=== PATIENT | female | born 1965 ===

== ENCOUNTER 2022-09-12 08:40 | Day surgery (SDC) | payer OTHER ==
[~2022-09-12 08:40] MED LIST: BIOTIN5000 MCG PO; CENTRUM ADULT120 MCG PO; TAMOXIFEN CITRA20 MG PO
== END 2022-09-12 19:15 | disposition home or self-care (01) ==
LOC: CIR.AMB 08:40
PROVIDERS: ATTEND Obstetrics & Gynecology
DX: N84.0 Polyp of corpus uteri (principal); R10.2 Pelvic and perineal pain; Z20.822 Contact with and (suspected) exposure to COVID-19; N94.89 Other specified conditions associated with female genital organs and menstrual cycle; C50.919 Malignant neoplasm of unspecified site of unspecified female breast; Z79.810 Long term (current) use of selective estrogen receptor modulators (SERMs)

== ENCOUNTER 2023-06-19 12:00 | Day surgery (SDC) | payer OTHER ==
[2023-06-19] MEDS ORDERED: CEFAZOLIN SODIUM 1,000 MG VIAL ONE (15:30)
[2023-06-19] MEDS ORDERED: POVIDONE-IODINE 118 ML BOTT TOP ONE ×2 (17:17→18:00)
[2023-06-19] MEDS ORDERED: CEFAZOLIN SODIUM 1,000 MG VIAL IV ONE (18:00)
== END 2023-06-19 22:30 | disposition home or self-care (01) ==
LOC: CIR.AMB 12:00
PROVIDERS: ATTEND Obstetrics & Gynecology
DX: N84.1 Polyp of cervix uteri (principal); Z20.822 Contact with and (suspected) exposure to COVID-19